=== PATIENT | male | born 1960 | race Caucasian/White ===

== ENCOUNTER 2024-06-20 02:50 | Emergency (ER) | payer MEDICARE, MEDICAID ==
[~2024-06-20] VITALS: Ht 177.8 cm; Wt 75.0 kg
[2024-06-20 02:53] VITALS: BP 118/71; PULSE 96; RESP 18; TEMP 98.2; O2SAT 98
== END 2024-06-20 03:15 | disposition left against medical advice (07) ==
LOC: ER 02:50
DX: R10.9 Unspecified abdominal pain (principal); Z53.21 Procedure and treatment not carried out due to patient leaving prior to being seen by health care provider